=== PATIENT | female | born 1995 | race Caucasian/White ===

== ENCOUNTER 2018-03-13 05:23 | Inpatient (IN) ==
[2018-03-13] MEDS ORDERED: Oxytocin 20 units/ LR 1000 mL 20 UNIT/1,000 ML BAG IVC ONE (05:33)
[2018-03-13] MEDS ORDERED: Ringers Solution, Lactated 1,000 ML IVC ONE (05:33)
[2018-03-13] MEDS ORDERED: Famotidine 20 MG/2 ML VIAL IVP ONE (05:33)
[2018-03-13] MEDS ORDERED: Metoclopramide 10 MG/2 ML VIAL IVP ONE (05:33)
[2018-03-13] MEDS ORDERED: Oxytocin 20 units/ LR 1000 mL 20 UNIT/1,000 ML BAG IVC SCH ×2 (05:45→11:31)
[2018-03-13] MEDS ORDERED: Ringers Solution, Lactated 1,000 ML IVC SCH (05:45)
[2018-03-13 06:40] LABS: Basophils % 0.2 %; Eosinophils # 0.1 K/mcL (0.0-0.6); Eosinophils % 0.9 %; Hematocrit 36.9 % (35.3-44.9); Hemoglobin 12.9 g/dL (11.5-15.4); Immature Granulocytes % 0.4 % (0-4); Lymphocytes # 2.2 K/mcL (0.6-4.6); Lymphocytes % 23.7 %; Mean Corpuscular Hemoglobin 31.9 pg (28.0-33.3); Mean Corpuscular Volume 91.1 fL (83.0-100.0); Mean Platelet Volume 11.4 fL (9.4-12.4); Monocytes # 0.9 K/mcL (0.0-1.3); Monocytes % 9.6 %; Platelet Count 169 K/mcL (140-400); Red Blood Count 4.05 M/mcL (3.82-4.97); Red Cell Distribution Width 13.2 % (11.5-14.5); Segmented Neutrophils % 65.2 %
[2018-03-13] MEDS ORDERED: cefOXitin 2,000 MG in D5% in Water (Mini-Bag+) 100 ML IVPB ONE (07:19)
--- NOTE | 2018-03-13 07:23 | History & Physical Report ---
Date of Encounter: 03/13/18 Time of Encounter: 07:22 24 Hour HP Update - Instructions Instructions: If the History and Physical is less than 30 days old and was completed prior to A.M. admission and or procedure and has NOT been updated on calendar day of procedure please complete this update prior to performing procedure. - Update Patient reports changes in Medical Condition: No Changes in examination, assessment, or condition: No Changes in Medication: No Preop tests/diagnostics Reviewed: Yes Surgery Remains Indicated: Yes Consent for Planned Operative Procedure(s) Verified: Yes - Pre-Operative Checklist Preoperative Checklist Indicated: Yes Prophylactic Antibiotic Ordered: Yes Home Medications Include Beta Alexander: No Is VTE Prophylaxis Indicated?: Yes
[2018-03-13] MEDS ORDERED: cefOXitin 2,000 MG in Water for inj. (sterile) 20 ML 20 ML IVP ONE (07:38)
[2018-03-13] MEDS ORDERED: Bupivacaine/PF 0.75% in Dex 2 ML AMPUL INFILT ONE (07:45)
[2018-03-13] MEDS ORDERED: Lidocaine -MPF 1% 5 ML AMPUL ONE (07:45)
[2018-03-13] MEDS ORDERED: *HR* FentaNYL (PF) 100 MCG/2 ML VIAL ONE (07:46)
[2018-03-13] MEDS ORDERED: *HR* Morphine Sulfate/PF 10 MG/10 ML AMPUL ONE (07:46)
[2018-03-13] MEDS ORDERED: *HR* Phenylephrine 10 MG/ML VIAL ONE (08:05)
[2018-03-13 08:11] LABS: Amphetamine Screen,Urine Negative ng/mL (Cutoff=1000); Barbiturate Screen,Urine Negative ng/mL (Cutoff=200); Benzodiazepines Screen,Urine Negative ng/mL (Cutoff=200); Cannabinoid Screen,Urine Negative ng/mL (Cutoff = 50); Cocaine Screen,Urine Negative ng/mL (Cutoff= 300); Opiate Screen,Urine Negative ng/mL (Cutoff=300); Phencyclidine Screen,Urine Negative ng/mL (Cutoff=25)
[2018-03-13] MEDS ORDERED: Ringers Solution, Lactated 1,000 ML ONE (08:22)
[2018-03-13] MEDS ORDERED: *HR* Oxytocin 10 UNIT/ML VIAL IM ONE (08:23)
--- NOTE | 2018-03-13 08:28 | Anesthesia Evaluation PreOp ---
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: Other (depression, chronic LBP) Other Medical History: Denies Any Significant HX Anesthesia History: No Prior Anesthetic Complications (had previous DANYA w/ out complications; denies personal & family h/o GA complications) : Yes Alcohol Use: none Drug use: none Medications and Allergies Fluoxetine HCl 1 tab PO DAILY 03/03/15 [History] Multi Tablet 1 tab PO DAILY 03/03/15 [History] Ranitidine HCl [Acid Senior It Project Manager] 75 mg PO DAILY 03/13/18 [History] 3 Allergy/AdvReac Type Severity Reaction Status Date / Time Sulfa (Sulfonamide Allergy Hives Verified 03/03/15 05:47 Antibiotics) - Meds/Allergy Pre-op Review Medications Reviewed: Yes Allergies Reviewed: Yes Beta Blockers on Current Med List: No Anesthesia Results - Labs 03/13/18 06:15 Anesthesia Exam 115/70, HR 106, RR 15 O2 Sat Height 1.7 m Height 1.7 m Weight 127 kg Weight 127 kg NPO (# of Hours): solids > 8hr Pain Scale: 0 Pain Scale Used: Numeric (1 - 10) - HEENT Pupil (Motor): Pupils equal Mallampati: II Teeth: Normal Oral Opening: Greater than 3 - PREFORM MACHINE OPERATOR LOC: Oriented PREFORM MACHINE OPERATOR Motor: Normal RUE, Normal LUE, Normal RLE, Normal LLE, Normal Face PREFORM MACHINE OPERATOR Sensory: Normal: RUE, LUE, RLE, LLE, Face - Cardiac Rhythm: Regular Murmur: None - Pulmonary Breath Sounds: bilateral Clear Respiratory Effort: Symmetrical Anesthesia Assess/Plan ASA Score: 3 (Morbid Obesity) Modified [place] Scale for Level of Consciousness: Cooperative, oriented, and tranquil Anesthetic Plan: Regional Autologous Blood: No Monitoring Plan: Standard Monitors Recovery Plan: PACU
[2018-03-13] MEDS ORDERED: Naloxone 0.4 MG/ML INJ IVP PRN ×2 (08:33→11:31)
[2018-03-13] MEDS ORDERED: *HR* Promethazine 25 MG/ML VIAL IVP PRN (08:33)
[2018-03-13] MEDS ORDERED: Ondansetron 4 MG/2 ML VIAL IVP PRN ×2 (08:33→11:31)
[2018-03-13] MEDS ORDERED: *HR* HYDROmorphone 2 MG TABLET PO PRN (08:33)
--- NOTE | 2018-03-13 08:36 | Anesthesia Procedures ---
Date of Encounter: 03/13/18 Time of Encounter: 08:01 Procedures: Anesthesia - Epidural/Spinal Patient ID/Chart reviewed: Yes Patient examined: Yes OB Eval: Gestational age: 39 weeks 3 days OB Eval: : 2 OB Eval: Hx Para: 1 OB Eval: Contractions: Non-stressed pattern Consent Obtained: Yes Supplemental Oxygen: None/Room Air Site Prep: Aseptic Technique, Sterile prep and drape, Povidone-Iodine 1% Patient position: upright Local Anesthetic: Lidocaine 1% Amount of Local Anesthetic used: 3 Interspace Used: L4-L5 Blood: No CSF: Yes Paresthesia: No Spinal Needle Gauge: 25 (3.5" pencan pencil point needle) Spinal Dose: see anesthesia record Procedure: successful on 1st attempt; patient tolerated procedure well; VSS Vitals + FHT's: see anesthesia record
--- NOTE | 2018-03-13 09:17 | OB/GYN Procedure Note ---
Section - Date of procedure: 03/13/18 Preop diagnosis: desires repeat Post-op diagnosis: same (Light meconium-stained amniotic fluid) Procedure: section, repeat low transverse Surgeon: Mitzy Griffin Blood Loss: 500 Was there an elementary assistant teacher present: No Insole Lip Turner: Joseph Bustamante Anesthesia Type: Spinal section complications: none Disposition: L&D Recovery Room Specimens: Placenta, Cord segment, Cord blood - Infant (s) A Delivery Date: 03/13/18 Delivery Time: 08:30 Presentation: vertex Position: JAZMYN Route of delivery: other Gender: Male Viability: Viable Pounds: 8 Ounces: 0 Gram Weight: 3.615 kg at 1 minute: 9 at 5 minutes: 9 Shoulder Dystocia: not encountered Specimens collected: cord blood Placenta: spontaneous, uterine exploration Cord: 3 umbilical vessels - Narrative Narrative: The patient was taken to the operating room and given spinal anesthesia adequate for abdominal and pelvic surgery. The was prepped and draped in the usual sterile fashion. Timeout was completed. A Pfannenstiel skin incision was made through the previous scar. The subcutaneous tissue was sharply dissected down to the fascia. The fascia was incised in the midline and extended bilaterally with Perez scissors.. 2 straight [place] clamps were placed on the inferior fascial edge and the fascia was bluntly and sharply dissected away from the rectus muscles. This was repeated superiorly. Peritoneum was bluntly entered. There were omental and uterine adhesions anteriorly which was lysed with a Bovie and hemostasis confirmed. Bladder blade was placed to protect the bladder. Vesicouterine peritoneum was incised and reflected inferiorly, and the bladder blade was replaced to protect the bladder. A low transverse incision was then made on the uterus which is extended bluntly. There was prominent vascularity running through the amnion. The amnion was bluntly entered with an Allis clamp. There was a large amount of lightly meconium-stained amniotic fluid was seen. This was followed by the vertex delivery of a viable and vigorous male infant weighing 8#0oz with Apgars of 9 at 1 minute and 9 at 5 minutes. Umbilical cord was wrapped around both ankles. Infant was placed on the maternal abdomen. The cord was clamped and cut after a delay. Infant was handed to the nursery care team. The placenta was delivered spontaneous and intact. The uterine cavity was digitally palpated and wiped clean with a moist lap sponge. There were no placental remnants identified. A ring forcep was used to make sure the cervix was dilated and then this was discarded off the field. Clamps were placed on the uterine angles and the uterine incision was closed using 0 Vicryl suture in a running, locking fashion. Gloves were changed. A second imbricating layer completed the uterine closure with 0 Vicryl suture. The uterus was then examined and noted to be hemostatic. The pelvis was then irrigated with a copious amount of sterile water. Again, good hemostasis was identified. Tubes and ovaries were inspected and noted to be grossly normal. The peritoneal edges and rectus muscles were then examined and hemostasis achieved. The fascia was then closed using 0 PDS loop in a running, nonlocking fashion. Subcutaneous tissue was irrigated with sterile water, good hemostasis was achieved. The skin was then closed using a 4-0 Monocryl in a running subcuticular fashion. A dressing was placed. Estimated blood loss was 500cc. The Vo was noted to be draining clear yellow urine at the end of the procedure. All sponge and instrument counts are correct at the end of the procedure. The patient was taken to the recovery room in stable condition.
--- NOTE | 2018-03-13 11:30 | Anesthesia Evaluation Post Op ---
Date of Encounter: 03/13/18 Time of Encounter: 11:29 - Vital Signs Vital Signs: 110/44, HR 87, RR 16, 97.9F, SpO2 98% - Lungs Lungs: Clear Ascult./Percussion - Airway Airway: Non-obstructed - Cardiovascular Regular Rate - Mental Status Mental Status: Alert & Oriented, Answers Appropriately - Pain Pain Scale: 0 Pain Scale used: Numeric (1 - 10) - Nausea Vomiting Nausea Vomiting: Not Present - Hydration Hydration: NPO, Vo catheter - Discharge PostOp Status: Transfer Patient to floor
[2018-03-13] MEDS ORDERED: Metoclopramide 10 MG/2 ML VIAL IVP PRN (11:31)
[2018-03-13] MEDS ORDERED: Rho Immune Globulin 1,500 UNIT SYRINGE IM ONE (11:31)
[2018-03-13] MEDS ORDERED: Sennosides 8.6 MG TABLET PO PRN (11:31)
[2018-03-13] MEDS ORDERED: *HR* HYDROmorphone (PF) 1 MG/ML SYRINGE IVP PRN (11:31)
[2018-03-13] MEDS ORDERED: *HR* OxyCODONE/APAP 5/325 TABLET PO PRN (11:31)
[2018-03-13] MEDS ORDERED: Simethicone 80 MG TAB.CHEW PO PRN (11:31)
[2018-03-13] MEDS ORDERED: Ibuprofen 600 MG TABLET PO SCH (12:00)
[2018-03-14 07:28] LABS: Basophils % 0.2 %; Eosinophils # 0.1 K/mcL (0.0-0.6); Eosinophils % 1.2 %; Hematocrit 34.2 % (35.3-44.9); Hemoglobin 11.7 g/dL (11.5-15.4); Immature Granulocytes % 0.4 % (0-4); Lymphocytes # 1.3 K/mcL (0.6-4.6); Lymphocytes % 15.1 %; Mean Corpuscular HGB Conc 34.2 g/dL (31.6-35.5); Mean Corpuscular Hemoglobin 31.1 pg (28.0-33.3); Mean Platelet Volume 11.4 fL (9.4-12.4); Monocytes # 0.8 K/mcL (0.0-1.3); Monocytes % 9.7 %; Neutrophils # 6.1 K/mcL (1.6-8.9); Platelet Count 151 K/mcL (140-400); Red Blood Count 3.76 M/mcL (3.82-4.97); Red Cell Distribution Width 13.5 % (11.5-14.5); Segmented Neutrophils % 73.4 %
[2018-03-14] MEDS: Prenatal Vit/FA 1 EACH TABLET PO SCH (09:43)
[2018-03-14 10:28] VITALS: BP 107/63
--- NOTE | 2018-03-14 12:50 | Discharge Summary ---
Date of Encounter: 03/14/18 Time of Encounter: 12:44 - Discharge Diagnosis (1) Status post repeat low transverse section Priority: Primary Status: Acute Comments: Continue routine postop/ care discharge home today per patient request follow up with Dr. Summers in 2 weeks for incision check (2) Breast feeding status of mother Priority: Secondary Status: Acute Comments: support prn - Discharge Medications Prescriptions: OxyCODONE/APAP 5/325 [Percocet 5/325 MG] 1 each PO Q4HR PRN 5 Days #30 tablet PRN Reason: Moderate pain 4-6 Ibuprofen [Motrin] 600 mg PO Q6HR #60 tablet Docusate [Colace] 100 mg PO BID #30 capsule Home Medications: Fluoxetine HCl 1 tab PO DAILY 03/03/15 [History] Multi Tablet 1 tab PO DAILY 03/03/15 [History] Docusate [Colace] 100 mg PO BID #30 capsule 03/14/18 [Rx] Ibuprofen [Motrin] 600 mg PO Q6HR #60 tablet 03/14/18 [Rx] OxyCODONE/APAP 5/325 [Percocet 5/325 MG] 1 each PO Q4HR PRN 5 Days #30 tablet [Rx] Allergies/Adverse Reactions: 3 Allergy/AdvReac Type Severity Reaction Status Date / Time Sulfa (Sulfonamide Allergy Hives Verified 03/03/15 05:47 Antibiotics) Data Procedures and tests throughout hospitalization: Laboratory Tests 03/13/18 03/13/18 03/13/18 05:15 06:15 10:21 WBC 9.2 RBC 4.05 Hgb 12.9 Hct 36.9 MCV 91.1 MCH 31.9 MCHC 35.0 RDW 13.2 Plt Count 169 MPV 11.4 Immature Gran % 0.4 Seg Neutrophils % 65.2 Lymphocytes % 23.7 Monocytes % 9.6 Eosinophils % 0.9 Basophils % 0.2 Neutrophils # 6.0 Lymphocytes # 2.2 Monocytes # 0.9 Eosinophils # 0.1 Basophils # 0.0 Urine Opiates Screen Negative Ur Barbiturates Screen Negative Ur Phencyclidine Scrn Negative Ur Amphetamines Screen Negative U Benzodiazepines Scrn Negative Urine Cocaine Screen Negative U Marijuana (THC) Screen Negative Ur Drug Screen Interp See Below Baby's Blood Type O RH NEGATIVE Mother's Blood Type B RH NEGATIVE Rhogam Indicated NO 03/14/18 06:56 WBC 8.3 RBC 3.76 L Hgb 11.7 Hct 34.2 L MCV 91.0 MCH 31.1 MCHC 34.2 RDW 13.5 Plt Count 151 MPV 11.4 Immature Gran % 0.4 Seg Neutrophils % 73.4 Lymphocytes % 15.1 Monocytes % 9.7 Eosinophils % 1.2 Basophils % 0.2 Neutrophils # 6.1 Lymphocytes # 1.3 Monocytes # 0.8 Eosinophils # 0.1 Basophils # 0.0 Urine Opiates Screen Ur Barbiturates Screen Ur Phencyclidine Scrn Ur Amphetamines Screen U Benzodiazepines Scrn Urine Cocaine Screen U Marijuana (THC) Screen Ur Drug Screen Interp Baby's Blood Type Mother's Blood Type Rhogam Indicated Labs on day of discharge: Labs from last 24 hours 03/14/18 03/13/18 06:56 10:21 WBC 8.3 RBC 3.76 L Hgb 11.7 Hct 34.2 L MCV 91.0 MCH 31.1 MCHC 34.2 RDW 13.5 Plt Count 151 MPV 11.4 Immature Gran % 0.4 Seg Neutrophils % 73.4 Lymphocytes % 15.1 Monocytes % 9.7 Eosinophils % 1.2 Basophils % 0.2 Neutrophils # 6.1 Lymphocytes # 1.3 Monocytes # 0.8 Eosinophils # 0.1 Basophils # 0.0 Baby's Blood Type O RH NEGATIVE Mother's Blood Type B RH NEGATIVE Rhogam Indicated NO Date of admission: 03/13/18 05:23 Primary care physician: Sudha Rosa CNP Discharging clinician: Sharmila Roberson Anticipated date of discharge: 03/14/18 - Patient Status Disposition: Home, Self-Care Condition: Good Functional capacity at discharge: independent ambulation - Discharge Instructions Follow Up With: Sudha Rosa CNP [Primary Care Provider] - Mitzy Summers MD [Partnered Physician] - - Diet and Activity Activity: increase activity as tolerated Diet: regular diet Hospital Course Procedures: OarrS Report reviewed per THEODORE Matta Reason for admission: section Delivery: section Episiotomy: none Laceration: none Other procedures: none complications: none Discharge diagnosis: IUP at term delivered baby: male (breast feeding) Time Attestation: Total time spent providing and/or coordinating discharge services: Time Spent: Less than 30 minutes - VTE Documentation of Mechanical Device: Intermittent pneumatic compression device Exam - Constitutional Vitals: Temp Pulse Resp BP Pulse Ox 98.2 F 73 16 107/63 96 03/14/18 10:27 03/14/18 10:27 03/14/18 10:27 03/14/18 10:27 03/14/18 03:30 General appearance IM: A&O X 3, pleasant, answers questions appropriately - Respiratory Respiratory exam: Present: CTAB - Cardiovascular Cardiovascular exam IM: Present: RRR, +S1, +S2 - GI/Abdominal Incision: normal, dry, intact, dressed - Uterine Tone: Firm Uterus Position: 2 Fingers Below Umbilicus, Midline - Extremities Exam Extremities exam IM: Present: full ROM, normal capillary refill, normal inspection - Neurological Exam Neurological exam: alert, oriented X3, reflexes normal
== END 2018-03-14 17:11 | disposition home or self-care (01) | DRG 766 ==
LOC: 1NENULAB 05:23 → 1NENUOBS 11:41
PROVIDERS: ADMIT Obstetrics & Gynecology; ATTEND Obstetrics & Gynecology